=== PATIENT | female | born 1955 | race Caucasian/White ===

== ENCOUNTER → 2017-04-28 | Outpatient (CLI) | payer OTHER ==
[~2017-04-28] MED LIST: CIPR500T87 PO; FLUO10CA13 PO; LORA-446 PO; LORA2TAB99 PO; MIDO2.5T PO; MIRT15TA3 PO; RISP1TAB PO; WARF2TAB PO-COUM; kcl PO
== END | disposition home or self-care (01) ==
LOC: CFH 13:13
PROVIDERS: ATTEND Internal Medicine
DX: J90 Pleural effusion, not elsewhere classified (principal); I26.99 Other pulmonary embolism without acute cor pulmonale; Z86.711 Personal history of pulmonary embolism
CPT/HCPCS: 71275

== ENCOUNTER 2017-05-31 16:01 | Inpatient (IN) | payer OTHER ==
[~2017-05-31] VITALS: Ht 157.5 cm; Wt 62.3 kg
[2017-05-31] MEDS ORDERED: SODIUM CHLORIDE FLUSH 10ML SYR IVF ONE (17:00)
[2017-05-31] MEDS ORDERED: SODIUM CHLORIDE 0.9% 1,000ML IVBOLUS ONE (17:00)
[2017-05-31 17:12] LABS: HEMATOCRIT 49.6 % (34.6-47.8); HEMOGLOBIN 16.4 g/dL (11.7-16.4); WHITE BLOOD COUNT 12.4 x10^3/uL (3.4-10)
[2017-05-31 17:24] LABS: ASPARTATE AMINO TRANSFERASE 85 U/L (15-37); BLOOD UREA NITROGEN 35 mg/dL (7-18)
[2017-05-31] MEDS ORDERED: TRAZODONE 50MG TABLET PO PRN (18:00)
[2017-05-31] MEDS ORDERED: ACETAMINOPHEN 325 MG TABLET PO PRN (18:00)
[2017-05-31] MEDS ORDERED: ONDANSETRON 2MG/ML, 2ML IVPush PRN (18:00)
[2017-05-31] MEDS ORDERED: ENOXAPARIN 40 MG/0.4 ML SQ SCH (18:00)
[2017-05-31] MEDS ORDERED: ENOXAPARIN 40 MG/0.4 ML ONE (18:37)
[2017-05-31] MEDS: SODIUM CHLORIDE 0.9% 1,000 ML IV SCH (19:00)
[2017-05-31] MEDS ORDERED: RISP2TAB3 PO (19:09)
[2017-05-31] MEDS ORDERED: WARF5TAB7 PO (19:09)
[2017-05-31] MEDS ORDERED: LORA-445 PO (19:09)
[2017-05-31 19:51] VITALS: BP 140/86
[2017-06-01 01:43] VITALS: BP 131/78
[2017-06-01 05:28] LABS: HEMATOCRIT 42.7 % (34.6-47.8); HEMOGLOBIN 13.8 g/dL (11.7-16.4); WHITE BLOOD COUNT 7.4 x10^3/uL (3.4-10)
[2017-06-01 05:34] LABS: BLOOD UREA NITROGEN 18 mg/dL (7-18)
[2017-06-01] MEDS: SODIUM CHLORIDE 0.9% 1,000 ML IV SCH ×3 (05:55→23:54)
[2017-06-01 08:18] VITALS: BP 150/83
[2017-06-01 09:27] LABS: DAU SCREEN DISCLAIMER
[2017-06-01 14:26] VITALS: BP 157/95
[2017-06-01] MEDS ORDERED: POTASSIUM CHLORIDE 20 MEQ TAB.ER.PRT PO ONE (16:00)
[2017-06-01] MEDS ORDERED: SODIUM PHOSPHATE 20 MMOL in SODIUM CHLORIDE 0.9% 500 ML IV ONE (16:00)
[2017-06-01] MEDS: WARFARIN 5 MG TABLET PO-COUM SCH (17:32)
[2017-06-01 18:47] VITALS: BP 126/79
[2017-06-01] MEDS ORDERED: RISPERIDONE 2 MG TABLET PO SCH (21:00)
[2017-06-01] MEDS: LORazepam 0.5MG TABLET PO SCH (23:54)
[2017-06-02 02:14] VITALS: BP 117/72
[2017-06-02] MEDS: SODIUM CHLORIDE 0.9% 1,000 ML IV SCH ×3 (04:58→23:31)
[2017-06-02 07:27] VITALS: BP 123/72
[2017-06-02] MEDS: LORazepam 0.5MG TABLET PO SCH (08:26)
[2017-06-02] MEDS ORDERED: LORazepam 2 MG/ML, 1ML IVPush ONE (13:05)
[2017-06-02] MEDS: LORazepam 2 MG/ML, 1ML IVPush SCH ×2 (13:30→16:49)
[2017-06-02 13:45] VITALS: BP 137/80
[2017-06-02 14:32] LABS: BLOOD UREA NITROGEN 6 mg/dL (7-18)
[2017-06-02] MEDS: WARFARIN 5 MG TABLET PO-COUM SCH (16:49)
[2017-06-02 19:02] VITALS: BP 120/84
[2017-06-02] MEDS: RISPERIDONE 1 MG TAB.RAPDIS PO SCH (23:31)
[2017-06-03 01:32] VITALS: BP 102/67
[2017-06-03 06:13] LABS: BLOOD UREA NITROGEN 7 mg/dL (7-18)
[2017-06-03] MEDS: SODIUM CHLORIDE 0.9% 1,000 ML IV SCH ×3 (07:37→21:59)
[2017-06-03] MEDS: LORazepam 2 MG/ML, 1ML IVPush SCH ×3 (07:41→17:08)
[2017-06-03 07:53] VITALS: BP 134/82
[2017-06-03] MEDS ORDERED: POTASSIUM CHLORIDE 20 MEQ TAB.ER.PRT PO ONE (09:00)
[2017-06-03 13:07] VITALS: BP 126/77
[2017-06-03] MEDS: WARFARIN 5 MG TABLET PO-COUM SCH (17:09)
[2017-06-03 19:40] VITALS: BP 131/86
[2017-06-03] MEDS ORDERED: LORazepam 2 MG/ML, 1ML IVPush SCH (21:00)
[2017-06-03] MEDS: RISPERIDONE 1 MG TAB.RAPDIS PO SCH (21:59)
[2017-06-04 00:27] VITALS: BP 119/79
[2017-06-04] MEDS: SODIUM CHLORIDE 0.9% 1,000 ML IV SCH ×3 (05:18→17:32)
[2017-06-04 07:05] VITALS: BP 135/88
[2017-06-04 08:28] LABS: HEMOGLOBIN 14.4 g/dL (11.7-16.4); WHITE BLOOD COUNT 8.1 x10^3/uL (3.4-10)
[2017-06-04] MEDS: LORazepam 2 MG/ML, 1ML IVPush SCH ×3 (08:28→16:59)
[2017-06-04 08:34] LABS: ASPARTATE AMINO TRANSFERASE 16 U/L (15-37); BLOOD UREA NITROGEN 3 mg/dL (7-18)
[2017-06-04] MEDS ORDERED: POTASSIUM CHLORIDE 40 MEQ in SODIUM CHLORIDE 0.9% 500 ML IV ONE (09:00)
[2017-06-04 16:05] VITALS: BP 130/85
[2017-06-04] MEDS: POTASSIUM CHLORIDE 20 MEQ TAB.ER.PRT PO SCH ×2 (17:30→17:33)
[2017-06-04] MEDS: WARFARIN 5 MG TABLET PO-COUM SCH (17:44)
[2017-06-04] MEDS: THIAMINE 100 MG in SODIUM CHLORIDE 0.9% 50 ML IV SCH (19:14)
[2017-06-04 20:00] VITALS: BP 123/78
[2017-06-04] MEDS ORDERED: LORazepam 2 MG/ML, 1ML IVPush SCH (21:00)
[2017-06-04] MEDS: RISPERIDONE 1 MG TAB.RAPDIS PO SCH (21:17)
[2017-06-04 22:25] VITALS: BP 115/75
[2017-06-05 04:59] VITALS: BP 136/85
[2017-06-05] MEDS: LORazepam 2 MG/ML, 1ML IVPush SCH ×3 (08:17→18:16)
[2017-06-05] MEDS: SODIUM CHLORIDE 0.9% 1,000 ML IV SCH ×2 (08:17→16:28)
[2017-06-05] MEDS: POTASSIUM CHLORIDE 20 MEQ TAB.ER.PRT PO SCH ×2 (08:17→18:15)
[2017-06-05 08:30] VITALS: BP 133/85
[2017-06-05 09:01] LABS: BLOOD UREA NITROGEN 3 mg/dL (7-18)
[2017-06-05] MEDS ORDERED: POTASSIUM CHLORIDE 40 MEQ in SODIUM CHLORIDE 0.9% 500 ML IV ONE (09:30)
[2017-06-05] MEDS ORDERED: SODIUM PHOSPHATE 20 MMOL in SODIUM CHLORIDE 0.9% 500 ML IV ONE (11:00)
[2017-06-05] MEDS ORDERED: MAGNESIUM SULFATE PMX 4GM/100M 100 ML IV ONE (11:00)
[2017-06-05 13:51] VITALS: BP 114/73
[2017-06-05] MEDS: THIAMINE 100 MG in SODIUM CHLORIDE 0.9% 50 ML IV SCH (18:15)
[2017-06-05] MEDS: WARFARIN 5 MG TABLET PO-COUM SCH (18:16)
[2017-06-05] MEDS: RISPERIDONE 1 MG TAB.RAPDIS PO SCH (20:11)
[2017-06-05 20:32] VITALS: BP 119/78
[2017-06-05] MEDS ORDERED: LORazepam 2 MG/ML, 1ML IVPush SCH (21:00)
[2017-06-06 01:04] VITALS: BP 116/78
[2017-06-06] MEDS: SODIUM CHLORIDE 0.9% 1,000 ML IV SCH ×2 (05:18→13:52)
[2017-06-06 05:42] LABS: BLOOD UREA NITROGEN 3 mg/dL (7-18)
[2017-06-06] MEDS: LORazepam 2 MG/ML, 1ML IVPush SCH ×3 (08:15→17:28)
[2017-06-06 08:26] VITALS: BP 126/87
[2017-06-06 13:48] VITALS: BP 120/79
[2017-06-06] MEDS: WARFARIN 5 MG TABLET PO-COUM SCH (17:28)
[2017-06-06] MEDS: THIAMINE 100 MG in SODIUM CHLORIDE 0.9% 50 ML IV SCH (17:29)
[2017-06-06 19:17] VITALS: BP 129/85
[2017-06-06] MEDS: RISPERIDONE 1 MG TAB.RAPDIS PO SCH (20:50)
[2017-06-07 01:58] VITALS: BP 116/66
[2017-06-07] MEDS: SODIUM CHLORIDE 0.9% 1,000 ML IV SCH (04:24)
[2017-06-07 07:17] VITALS: BP 148/81
[2017-06-07] MEDS: LORazepam 2 MG/ML, 1ML IVPush SCH ×3 (08:33→18:18)
[2017-06-07] MEDS ORDERED: SODIUM PHOSPHATE 20 MMOL in SODIUM CHLORIDE 0.9% 500 ML IV ONE (10:00)
[2017-06-07] MEDS ORDERED: DOCUSATE 100 MG CAPSULE PO PRN ×2 (13:30→19:00)
[2017-06-07 13:45] VITALS: BP 117/77
[2017-06-07] MEDS ORDERED: ACETAMINOPHEN 325 MG TABLET PO PRN (19:00)
[2017-06-07] MEDS ORDERED: TRAZODONE 50MG TABLET PO PRN (19:00)
[2017-06-07] MEDS ORDERED: ONDANSETRON 2MG/ML, 2ML IVPush PRN (19:00)
[2017-06-07 19:36] VITALS: BP 124/78
[2017-06-08] MEDS: SODIUM CHLORIDE 0.9% 1,000 ML IV SCH ×2 (01:09→08:20)
[2017-06-08] MEDS: THIAMINE 100 MG in SODIUM CHLORIDE 0.9% 50 ML IV SCH (01:09)
[2017-06-08] MEDS: RISPERIDONE 1 MG TAB.RAPDIS PO SCH ×2 (01:09→20:51)
[2017-06-08 01:56] VITALS: BP 118/70
[2017-06-08 04:39] LABS: HEMOGLOBIN 15.1 g/dL (11.7-16.4); WHITE BLOOD COUNT 6.1 x10^3/uL (3.4-10)
[2017-06-08 04:49] LABS: BLOOD UREA NITROGEN 4 mg/dL (7-18)
[2017-06-08 04:55] LABS: ASPARTATE AMINO TRANSFERASE 14 U/L (15-37)
[2017-06-08 08:10] VITALS: BP 151/92
[2017-06-08] MEDS: POTASSIUM CHLORIDE 20 MEQ TAB.ER.PRT PO SCH ×2 (08:33→17:39)
[2017-06-08] MEDS: LORazepam 2 MG/ML, 1ML IVPush SCH ×3 (08:33→17:39)
[2017-06-08] MEDS ORDERED: NS + 20MEQ KCL 1,000 ML IV SCH (11:00)
[2017-06-08] MEDS ORDERED: TPN PER PHARMACY MC PRN (11:30)
[2017-06-08 13:51] VITALS: BP 133/85
[2017-06-08] MEDS ORDERED: FILTER, DISP 1.2 MICRON FOR TPN/PVN IV PRN (14:00)
[2017-06-08] MEDS ORDERED: DEXTROSE 50%, 50ML SYRINGE IVPush PRN (17:00)
[2017-06-08] MEDS ORDERED: [UNRECOGNIZED DRUG - OTHER] IV SCH (17:00)
[2017-06-08] MEDS ORDERED: AMINO ACID 10% IV SCH (17:00)
[2017-06-08] MEDS ORDERED: DEXTROSE 10% 500 ML IV PRN (17:00)
[2017-06-08] MEDS ORDERED: FAT EMULSIONS IV SCH (17:00)
[2017-06-08] MEDS ORDERED: DEXTROSE 70% IV SCH (17:00)
[2017-06-08] MEDS: INSULIN REGULAR LOW DOSE Q6H X 48HRS SQ-INSULIN SCH (20:52)
[2017-06-08] MEDS ORDERED: LORazepam 2 MG/ML, 1ML IVPush SCH (21:00)
[2017-06-08 21:41] VITALS: BP 121/85
[2017-06-09 01:16] VITALS: BP 116/74
[2017-06-09] MEDS: INSULIN REGULAR LOW DOSE Q6H X 48HRS SQ-INSULIN SCH ×4 (03:00→20:34)
[2017-06-09 05:06] LABS: BLOOD UREA NITROGEN 5 mg/dL (7-18)
[2017-06-09 07:31] VITALS: BP 134/83
[2017-06-09] MEDS: LORazepam 2 MG/ML, 1ML IVPush SCH ×3 (08:19→16:59)
[2017-06-09] MEDS: POTASSIUM CHLORIDE 20 MEQ TAB.ER.PRT PO SCH (08:19)
[2017-06-09 14:01] VITALS: BP 124/83
[2017-06-09] MEDS ORDERED: FILTER, DISP 1.2 MICRON FOR TPN/PVN IV PRN (16:00)
[2017-06-09] MEDS ORDERED: [UNRECOGNIZED DRUG - OTHER] IV SCH (17:00)
[2017-06-09] MEDS ORDERED: FAT EMULSIONS IV SCH ×3 (17:00)
[2017-06-09] MEDS ORDERED: DEXTROSE 70% IV SCH ×3 (17:00)
[2017-06-09] MEDS ORDERED: AMINO ACID 10% IV SCH ×3 (17:00)
[2017-06-09] MEDS ORDERED: [UNRECOGNIZED DRUG - OTHER] IV SCH ×2 (17:00)
[2017-06-09] MEDS: RISPERIDONE 1 MG TAB.RAPDIS PO SCH (17:06)
[2017-06-09] MEDS ORDERED: DEXTROSE 10% 500 ML IV PRN (17:46)
[2017-06-09] MEDS ORDERED: WARFARIN 5 MG TABLET PO-COUM ONE (18:00)
[2017-06-09 19:26] VITALS: BP 125/87
[2017-06-09] MEDS ORDERED: LORazepam 2 MG/ML, 1ML IVPush SCH (21:00)
[2017-06-10 01:47] VITALS: BP 119/82
[2017-06-10] MEDS: INSULIN REGULAR LOW DOSE Q6H X 48HRS SQ-INSULIN SCH ×3 (03:00→15:00)
[2017-06-10 06:21] LABS: BLOOD UREA NITROGEN 7 mg/dL (7-18)
[2017-06-10 07:41] VITALS: BP 124/79
[2017-06-10] MEDS: LORazepam 2 MG/ML, 1ML IVPush SCH ×3 (09:13→17:00)
[2017-06-10] MEDS: ENOXAPARIN 60 MG/0.6 ML SQ SCH ×2 (10:02→22:45)
[2017-06-10] MEDS: LORazepam INTENSOL 2 MG/ML PO SCH ×2 (12:26→17:32)
[2017-06-10 14:00] VITALS: BP 95/63
[2017-06-10] MEDS ORDERED: DEXTROSE 70% IV SCH (17:00)
[2017-06-10] MEDS ORDERED: [UNRECOGNIZED DRUG - OTHER] IV SCH (17:00)
[2017-06-10] MEDS ORDERED: FAT EMULSIONS IV SCH (17:00)
[2017-06-10] MEDS ORDERED: FILTER, DISP 1.2 MICRON FOR TPN/PVN IV PRN (17:00)
[2017-06-10] MEDS ORDERED: AMINO ACID 10% IV SCH (17:00)
[2017-06-10] MEDS: RISPERIDONE 1 MG TAB.RAPDIS PO SCH (17:31)
[2017-06-10] MEDS ORDERED: WARFARIN 5 MG TABLET PO-COUM SCH (18:00)
[2017-06-10 20:37] VITALS: BP 103/71
[2017-06-10] MEDS: INSULIN REGULAR LOW DOSE QDAY SQ-INSULIN SCH (21:15)
[2017-06-11 00:56] VITALS: BP 102/68
[2017-06-11 05:41] LABS: BLOOD UREA NITROGEN 12 mg/dL (7-18)
[2017-06-11] MEDS: LORazepam 2 MG/ML, 1ML IVPush SCH ×3 (07:15→16:05)
[2017-06-11] MEDS: LORazepam INTENSOL 2 MG/ML PO SCH ×3 (07:33→17:23)
[2017-06-11 07:58] VITALS: BP 110/70
[2017-06-11] MEDS: ENOXAPARIN 60 MG/0.6 ML SQ SCH ×2 (11:35→21:52)
[2017-06-11 13:24] VITALS: BP 104/57
[2017-06-11] MEDS ORDERED: FAT EMULSIONS IV SCH (17:00)
[2017-06-11] MEDS ORDERED: DEXTROSE 70% IV SCH (17:00)
[2017-06-11] MEDS ORDERED: AMINO ACID 10% IV SCH (17:00)
[2017-06-11] MEDS ORDERED: [UNRECOGNIZED DRUG - OTHER] IV SCH (17:00)
[2017-06-11] MEDS: RISPERIDONE 1 MG TAB.RAPDIS PO SCH (17:22)
[2017-06-11] MEDS ORDERED: WARFARIN 7.5 MG TABLET PO-COUM SCH (18:00)
[2017-06-11 20:25] VITALS: BP 121/81
[2017-06-11] MEDS: INSULIN REGULAR LOW DOSE QDAY SQ-INSULIN SCH (21:00)
[2017-06-11] MEDS: TRAZODONE 50MG TABLET PO SCH ×2 (21:00→21:46)
[2017-06-12 02:53] VITALS: BP 122/64
[2017-06-12 07:28] VITALS: BP 126/84
[2017-06-12] MEDS: LORazepam 2 MG/ML, 1ML IVPush SCH ×3 (08:00→17:00)
[2017-06-12] MEDS: LORazepam INTENSOL 2 MG/ML PO SCH ×3 (08:05→17:56)
[2017-06-12] MEDS: ENOXAPARIN 60 MG/0.6 ML SQ SCH ×2 (10:40→23:38)
[2017-06-12 13:37] VITALS: BP 113/77
[2017-06-12] MEDS ORDERED: TRAZODONE 50MG TABLET PO PRN (16:00)
[2017-06-12] MEDS: RISPERIDONE 1 MG TAB.RAPDIS PO SCH (16:40)
[2017-06-12 16:50] VITALS: BP 121/79
[2017-06-12] MEDS ORDERED: [UNRECOGNIZED DRUG - OTHER] IV SCH (17:00)
[2017-06-12] MEDS ORDERED: FILTER, DISP 1.2 MICRON FOR TPN/PVN IV PRN (17:00)
[2017-06-12] MEDS ORDERED: DEXTROSE 70% IV SCH (17:00)
[2017-06-12] MEDS ORDERED: AMINO ACID 10% IV SCH (17:00)
[2017-06-12] MEDS ORDERED: FAT EMULSIONS IV SCH (17:00)
[2017-06-12] MEDS ORDERED: WARFARIN 10 MG TABLET PO-COUM SCH (18:00)
[2017-06-12 18:43] VITALS: BP 117/84
[2017-06-12 19:08] VITALS: BP 130/90
[2017-06-12] MEDS: INSULIN REGULAR LOW DOSE QDAY SQ-INSULIN SCH (21:00)
[2017-06-13 03:45] VITALS: BP 115/74
[2017-06-13 05:26] LABS: HEMATOCRIT 44.3 % (34.6-47.8); HEMOGLOBIN 14.4 g/dL (11.7-16.4); WHITE BLOOD COUNT 6.4 x10^3/uL (3.4-10)
[2017-06-13 05:47] LABS: BLOOD UREA NITROGEN 10 mg/dL (7-18)
[2017-06-13] MEDS: LORazepam 2 MG/ML, 1ML IVPush SCH ×3 (08:00→17:00)
[2017-06-13 08:18] VITALS: BP 127/79
[2017-06-13] MEDS: LORazepam INTENSOL 2 MG/ML PO SCH ×3 (09:04→17:39)
[2017-06-13] MEDS: ENOXAPARIN 60 MG/0.6 ML SQ SCH ×2 (11:01→22:05)
[2017-06-13 13:47] VITALS: BP 111/74
[2017-06-13] MEDS ORDERED: FAT EMULSIONS IV SCH (17:00)
[2017-06-13] MEDS ORDERED: AMINO ACID 10% IV SCH (17:00)
[2017-06-13] MEDS ORDERED: [UNRECOGNIZED DRUG - OTHER] IV SCH (17:00)
[2017-06-13] MEDS ORDERED: DEXTROSE 70% IV SCH (17:00)
[2017-06-13] MEDS: RISPERIDONE 1 MG TAB.RAPDIS PO SCH (17:39)
[2017-06-13] MEDS ORDERED: WARFARIN 10 MG TABLET PO-COUM SCH (18:00)
[2017-06-13 19:01] VITALS: BP 106/58
[2017-06-13] MEDS: INSULIN REGULAR LOW DOSE QDAY SQ-INSULIN SCH (21:00)
[2017-06-13] MEDS ORDERED: TPN PER PHARMACY MC PRN (22:00)
[2017-06-13] MEDS ORDERED: ACETAMINOPHEN 325 MG TABLET PO PRN (22:00)
[2017-06-13] MEDS ORDERED: DOCUSATE 100 MG CAPSULE PO PRN (22:00)
[2017-06-13] MEDS ORDERED: DEXTROSE 50%, 50ML SYRINGE IVPush PRN (22:00)
[2017-06-13] MEDS ORDERED: ONDANSETRON 2MG/ML, 2ML IVPush PRN (22:00)
[2017-06-14 04:09] VITALS: BP 110/74
[2017-06-14 06:30] LABS: BLOOD UREA NITROGEN 10 mg/dL (7-18)
[2017-06-14] MEDS: LORazepam 2 MG/ML, 1ML IVPush SCH ×3 (08:00→16:53)
[2017-06-14 09:13] VITALS: BP 136/86
[2017-06-14] MEDS: LORazepam INTENSOL 2 MG/ML PO SCH ×3 (09:13→16:52)
[2017-06-14] MEDS: ENOXAPARIN 60 MG/0.6 ML SQ SCH (11:39)
[2017-06-14 14:00] VITALS: BP 104/69
[2017-06-14] MEDS: RISPERIDONE 1 MG TAB.RAPDIS PO SCH (16:52)
[2017-06-14] MEDS ORDERED: AMINO ACID 10% IV SCH (17:00)
[2017-06-14] MEDS ORDERED: DEXTROSE 70% IV SCH (17:00)
[2017-06-14] MEDS ORDERED: FAT EMULSIONS IV SCH (17:00)
[2017-06-14] MEDS ORDERED: [UNRECOGNIZED DRUG - OTHER] IV SCH (17:00)
[2017-06-14] MEDS ORDERED: FILTER, DISP 1.2 MICRON FOR TPN/PVN IV PRN (17:00)
[2017-06-14] MEDS ORDERED: WARFARIN 7.5 MG TABLET PO-COUM SCH (18:00)
[2017-06-14 20:06] VITALS: BP 112/74
[2017-06-14] MEDS: INSULIN REGULAR LOW DOSE QDAY SQ-INSULIN SCH (21:00)
[2017-06-15] MEDS: ENOXAPARIN 60 MG/0.6 ML SQ SCH ×2 (00:08→12:13)
[2017-06-15 01:20] VITALS: BP 120/81
[2017-06-15 05:55] LABS: ASPARTATE AMINO TRANSFERASE 30 U/L (15-37); BLOOD UREA NITROGEN 11 mg/dL (7-18)
[2017-06-15 07:19] VITALS: BP 144/86
[2017-06-15] MEDS: LORazepam INTENSOL 2 MG/ML PO SCH ×3 (07:57→16:51)
[2017-06-15] MEDS: LORazepam 2 MG/ML, 1ML IVPush SCH ×3 (07:58→16:52)
[2017-06-15 14:04] VITALS: BP 116/72
[2017-06-15] MEDS: RISPERIDONE 1 MG TAB.RAPDIS PO SCH (16:51)
[2017-06-15] MEDS ORDERED: DEXTROSE 70% IV SCH (17:00)
[2017-06-15] MEDS ORDERED: [UNRECOGNIZED DRUG - OTHER] IV SCH (17:00)
[2017-06-15] MEDS ORDERED: AMINO ACID 10% IV SCH (17:00)
[2017-06-15] MEDS ORDERED: FAT EMULSIONS IV SCH (17:00)
[2017-06-15] MEDS ORDERED: FILTER, DISP 1.2 MICRON FOR TPN/PVN IV PRN (17:00)
[2017-06-15] MEDS ORDERED: WARFARIN 10 MG TABLET PO-COUM ONE (18:00)
[2017-06-15 19:32] VITALS: BP 110/73
[2017-06-15] MEDS: INSULIN REGULAR LOW DOSE QDAY SQ-INSULIN SCH (19:47)
[2017-06-16 00:38] VITALS: BP 105/62
[2017-06-16] MEDS: ENOXAPARIN 60 MG/0.6 ML SQ SCH ×3 (00:49→22:03)
[2017-06-16 06:06] LABS: BLOOD UREA NITROGEN 10 mg/dL (7-18)
[2017-06-16 07:19] VITALS: BP 143/93
[2017-06-16] MEDS: LORazepam 2 MG/ML, 1ML IVPush SCH ×3 (08:00→17:00)
[2017-06-16] MEDS: LORazepam INTENSOL 2 MG/ML PO SCH ×3 (09:18→17:32)
[2017-06-16] MEDS ORDERED: FILTER, DISP 1.2 MICRON FOR TPN/PVN IV PRN (09:30)
[2017-06-16 14:15] VITALS: BP 112/75
[2017-06-16] MEDS ORDERED: DEXTROSE 70% IV SCH (17:00)
[2017-06-16] MEDS ORDERED: FAT EMULSIONS IV SCH (17:00)
[2017-06-16] MEDS ORDERED: [UNRECOGNIZED DRUG - OTHER] IV SCH (17:00)
[2017-06-16] MEDS ORDERED: AMINO ACID 10% IV SCH (17:00)
[2017-06-16] MEDS: RISPERIDONE 1 MG TAB.RAPDIS PO SCH (17:33)
[2017-06-16] MEDS ORDERED: WARFARIN 7.5 MG TABLET PO-COUM ONE (18:00)
[2017-06-16 19:20] VITALS: BP 105/73
[2017-06-16] MEDS: INSULIN REGULAR LOW DOSE QDAY SQ-INSULIN SCH (21:00)
[2017-06-17 00:59] VITALS: BP 113/80
[2017-06-17 06:10] LABS: BLOOD UREA NITROGEN 10 mg/dL (7-18)
[2017-06-17] MEDS: LORazepam INTENSOL 2 MG/ML PO SCH ×3 (07:21→17:03)
[2017-06-17] MEDS: LORazepam 2 MG/ML, 1ML IVPush SCH ×3 (07:21→15:04)
[2017-06-17 08:15] VITALS: BP 134/82
[2017-06-17] MEDS: ENOXAPARIN 60 MG/0.6 ML SQ SCH ×2 (11:10→21:20)
[2017-06-17 13:05] VITALS: BP 117/78
[2017-06-17] MEDS ORDERED: [UNRECOGNIZED DRUG - OTHER] IV SCH (17:00)
[2017-06-17] MEDS ORDERED: FAT EMULSIONS IV SCH (17:00)
[2017-06-17] MEDS ORDERED: DEXTROSE 70% IV SCH (17:00)
[2017-06-17] MEDS ORDERED: AMINO ACID 10% IV SCH (17:00)
[2017-06-17] MEDS ORDERED: FILTER, DISP 1.2 MICRON FOR TPN/PVN IV PRN (17:00)
[2017-06-17] MEDS: RISPERIDONE 1 MG TAB.RAPDIS PO SCH (17:01)
[2017-06-17] MEDS ORDERED: WARFARIN 7.5 MG TABLET PO-COUM SCH (18:00)
[2017-06-17 20:20] VITALS: BP 116/76
[2017-06-17] MEDS: INSULIN REGULAR LOW DOSE QDAY SQ-INSULIN SCH (21:00)
[2017-06-18 01:08] VITALS: BP 125/82
[2017-06-18 05:58] LABS: BLOOD UREA NITROGEN 12 mg/dL (7-18)
[2017-06-18] MEDS: LORazepam 2 MG/ML, 1ML IVPush SCH ×3 (07:41→16:19)
[2017-06-18] MEDS: LORazepam INTENSOL 2 MG/ML PO SCH ×3 (07:45→16:55)
[2017-06-18 07:50] VITALS: BP 125/80
[2017-06-18] MEDS ORDERED: FILTER, DISP 1.2 MICRON FOR TPN/PVN IV PRN (09:30)
[2017-06-18] MEDS: ENOXAPARIN 60 MG/0.6 ML SQ SCH ×2 (11:11→22:30)
[2017-06-18 13:13] VITALS: BP 117/78
[2017-06-18] MEDS: RISPERIDONE 1 MG TAB.RAPDIS PO SCH (16:54)
[2017-06-18] MEDS ORDERED: [UNRECOGNIZED DRUG - OTHER] IV SCH (17:00)
[2017-06-18] MEDS ORDERED: FAT EMULSIONS IV SCH ×2 (17:00)
[2017-06-18] MEDS ORDERED: [UNRECOGNIZED DRUG - OTHER] IV SCH (17:00)
[2017-06-18] MEDS ORDERED: AMINO ACID 10% IV SCH ×2 (17:00)
[2017-06-18] MEDS ORDERED: DEXTROSE 70% IV SCH ×2 (17:00)
[2017-06-18] MEDS ORDERED: WARFARIN 7.5 MG TABLET PO-COUM ONE (18:00)
[2017-06-18 18:37] VITALS: BP 108/73
[2017-06-18] MEDS: INSULIN REGULAR LOW DOSE QDAY SQ-INSULIN SCH (20:23)
[2017-06-19 02:01] VITALS: BP 123/76
[2017-06-19 07:21] VITALS: BP 127/87
[2017-06-19] MEDS: LORazepam INTENSOL 2 MG/ML PO SCH ×3 (08:12→16:39)
[2017-06-19] MEDS: LORazepam 2 MG/ML, 1ML IVPush SCH ×3 (08:12→16:40)
[2017-06-19] MEDS: ENOXAPARIN 60 MG/0.6 ML SQ SCH (10:30)
[2017-06-19 12:35] VITALS: BP 125/86
[2017-06-19] MEDS: RISPERIDONE 1 MG TAB.RAPDIS PO SCH (16:40)
[2017-06-19] MEDS ORDERED: DEXTROSE 70% IV SCH (17:00)
[2017-06-19] MEDS ORDERED: FAT EMULSIONS IV SCH (17:00)
[2017-06-19] MEDS ORDERED: [UNRECOGNIZED DRUG - OTHER] IV SCH (17:00)
[2017-06-19] MEDS ORDERED: AMINO ACID 10% IV SCH (17:00)
[2017-06-19] MEDS ORDERED: FILTER, DISP 1.2 MICRON FOR TPN/PVN IV PRN (17:00)
[2017-06-19] MEDS ORDERED: WARFARIN 7.5 MG TABLET PO-COUM ONE (18:00)
[2017-06-19 20:31] VITALS: BP 120/79
[2017-06-19] MEDS: INSULIN REGULAR LOW DOSE QDAY SQ-INSULIN SCH (21:00)
[2017-06-20 00:38] VITALS: BP 106/73
[2017-06-20 05:23] LABS: HEMATOCRIT 42.7 % (34.6-47.8); HEMOGLOBIN 13.8 g/dL (11.7-16.4); WHITE BLOOD COUNT 7.1 x10^3/uL (3.4-10)
[2017-06-20 05:54] LABS: BLOOD UREA NITROGEN 11 mg/dL (7-18)
[2017-06-20] MEDS: LORazepam INTENSOL 2 MG/ML PO SCH ×3 (08:34→16:00)
[2017-06-20] MEDS: LORazepam 2 MG/ML, 1ML IVPush SCH ×3 (08:34→16:00)
[2017-06-20] MEDS: INSULIN REGULAR LOW DOSE QDAY SQ-INSULIN SCH (10:29)
[2017-06-20] MEDS ORDERED: [UNRECOGNIZED DRUG - OTHER] IV SCH (10:30)
[2017-06-20] MEDS ORDERED: FAT EMULSIONS IV SCH ×2 (10:30→17:00)
[2017-06-20] MEDS ORDERED: AMINO ACID 10% IV SCH ×2 (10:30→17:00)
[2017-06-20] MEDS ORDERED: DEXTROSE 70% IV SCH ×2 (10:30→17:00)
[2017-06-20 14:30] VITALS: BP_SYST 130; BP_SYST 145; BP_DIAS 85; BP_DIAS 92
[2017-06-20] MEDS: RISPERIDONE 1 MG TAB.RAPDIS PO SCH (15:59)
[2017-06-20] MEDS ORDERED: FILTER, DISP 1.2 MICRON FOR TPN/PVN IV PRN (17:00)
[2017-06-20] MEDS ORDERED: [UNRECOGNIZED DRUG - OTHER] IV SCH (17:00)
[2017-06-20] MEDS ORDERED: WARFARIN 10 MG TABLET PO-COUM SCH (18:00)
[2017-06-20 19:52] VITALS: BP 108/74
[2017-06-21 01:29] VITALS: BP 124/84
[2017-06-21] MEDS: LORazepam 2 MG/ML, 1ML IVPush SCH ×3 (08:00→16:43)
[2017-06-21] MEDS: LORazepam INTENSOL 2 MG/ML PO SCH ×3 (08:00→16:54)
[2017-06-21] MEDS ORDERED: LORazepam 1MG TABLET ONE ×2 (08:15→12:06)
[2017-06-21 08:38] VITALS: BP 137/91
[2017-06-21] MEDS: INSULIN REGULAR LOW DOSE QDAY SQ-INSULIN SCH ×2 (10:28→14:30)
[2017-06-21] MEDS ORDERED: DOCUSATE 100 MG CAPSULE PO PRN (14:30)
[2017-06-21] MEDS ORDERED: ONDANSETRON 2MG/ML, 2ML IVPush PRN (14:30)
[2017-06-21] MEDS ORDERED: DEXTROSE 50%, 50ML SYRINGE IVPush PRN (14:30)
[2017-06-21] MEDS ORDERED: ACETAMINOPHEN 325 MG TABLET PO PRN (14:30)
[2017-06-21 15:59] VITALS: BP 130/74
[2017-06-21] MEDS: RISPERIDONE 1 MG TAB.RAPDIS PO SCH (16:54)
[2017-06-21] MEDS ORDERED: FAT EMULSIONS IV SCH (17:00)
[2017-06-21] MEDS ORDERED: AMINO ACID 10% IV SCH (17:00)
[2017-06-21] MEDS ORDERED: [UNRECOGNIZED DRUG - OTHER] IV SCH (17:00)
[2017-06-21] MEDS ORDERED: DEXTROSE 70% IV SCH (17:00)
[2017-06-21] MEDS ORDERED: WARFARIN 10 MG TABLET PO-COUM SCH (18:00)
[2017-06-21 19:16] VITALS: BP 96/62
[2017-06-22 01:32] VITALS: BP 119/76
[2017-06-22 06:00] LABS: BLOOD UREA NITROGEN 16 mg/dL (7-18)
[2017-06-22 06:12] LABS: ASPARTATE AMINO TRANSFERASE 25 U/L (15-37)
[2017-06-22] MEDS: LORazepam 2 MG/ML, 1ML IVPush SCH ×3 (07:11→17:00)
[2017-06-22] MEDS: LORazepam INTENSOL 2 MG/ML PO SCH ×3 (07:14→17:18)
[2017-06-22 07:19] VITALS: BP 140/98
[2017-06-22 13:31] VITALS: BP 114/74
[2017-06-22] MEDS: INSULIN REGULAR LOW DOSE QDAY SQ-INSULIN SCH (14:30)
[2017-06-22] MEDS: FILTER, DISP 1.2 MICRON FOR TPN/PVN IV PRN (16:53)
[2017-06-22] MEDS ORDERED: [UNRECOGNIZED DRUG - OTHER] IV SCH (17:00)
[2017-06-22] MEDS ORDERED: AMINO ACID 10% IV SCH (17:00)
[2017-06-22] MEDS ORDERED: DEXTROSE 70% IV SCH (17:00)
[2017-06-22] MEDS ORDERED: FAT EMULSIONS IV SCH (17:00)
[2017-06-22] MEDS: RISPERIDONE 1 MG TAB.RAPDIS PO SCH (17:18)
[2017-06-22] MEDS ORDERED: WARFARIN 10 MG TABLET PO-COUM SCH (18:00)
[2017-06-22 19:48] VITALS: BP 112/72
[2017-06-23 01:22] VITALS: BP 108/64
[2017-06-23 05:27] LABS: HEMATOCRIT 45.2 % (34.6-47.8); HEMOGLOBIN 14.7 g/dL (11.7-16.4); WHITE BLOOD COUNT 12.3 x10^3/uL (3.4-10)
[2017-06-23 05:29] LABS: ASPARTATE AMINO TRANSFERASE 19 U/L (15-37); BLOOD UREA NITROGEN 15 mg/dL (7-18)
[2017-06-23 07:24] VITALS: BP 121/81
[2017-06-23] MEDS: LORazepam 2 MG/ML, 1ML IVPush SCH ×3 (08:00→17:00)
[2017-06-23] MEDS: LORazepam INTENSOL 2 MG/ML PO SCH ×3 (08:06→17:11)
[2017-06-23] MEDS: CHOLECALCIFEROL 1,000 UNIT TABLET PO SCH (12:11)
[2017-06-23] MEDS: INSULIN REGULAR LOW DOSE QDAY SQ-INSULIN SCH (14:11)
[2017-06-23 14:20] VITALS: BP 91/67
[2017-06-23] MEDS ORDERED: AMINO ACID 10% IV SCH ×2 (17:00)
[2017-06-23] MEDS ORDERED: DEXTROSE 70% IV SCH ×2 (17:00)
[2017-06-23] MEDS ORDERED: FAT EMULSIONS IV SCH ×2 (17:00)
[2017-06-23] MEDS ORDERED: [UNRECOGNIZED DRUG - OTHER] IV SCH ×2 (17:00)
[2017-06-23] MEDS: FILTER, DISP 1.2 MICRON FOR TPN/PVN IV PRN (17:11)
[2017-06-23] MEDS: RISPERIDONE 1 MG TAB.RAPDIS PO SCH (17:14)
[2017-06-23] MEDS ORDERED: WARFARIN 7.5 MG TABLET PO-COUM ONE (18:00)
[2017-06-23 19:34] VITALS: BP 97/74
[2017-06-24 01:28] VITALS: BP 108/79
[2017-06-24 05:48] LABS: BLOOD UREA NITROGEN 20 mg/dL (7-18)
[2017-06-24] MEDS: CHOLECALCIFEROL 1,000 UNIT TABLET PO SCH (07:57)
[2017-06-24] MEDS: LORazepam INTENSOL 2 MG/ML PO SCH ×3 (07:57→16:40)
[2017-06-24] MEDS: LORazepam 2 MG/ML, 1ML IVPush SCH ×3 (07:58→16:40)
[2017-06-24 08:03] VITALS: BP 147/86
[2017-06-24 13:29] VITALS: BP 106/71
[2017-06-24] MEDS: INSULIN REGULAR LOW DOSE QDAY SQ-INSULIN SCH (14:22)
[2017-06-24] MEDS: RISPERIDONE 1 MG TAB.RAPDIS PO SCH (16:40)
[2017-06-24] MEDS ORDERED: FAT EMULSIONS IV SCH (17:00)
[2017-06-24] MEDS ORDERED: [UNRECOGNIZED DRUG - OTHER] IV SCH (17:00)
[2017-06-24] MEDS ORDERED: AMINO ACID 10% IV SCH (17:00)
[2017-06-24] MEDS ORDERED: DEXTROSE 70% IV SCH (17:00)
[2017-06-24] MEDS: FILTER, DISP 1.2 MICRON FOR TPN/PVN IV PRN (17:14)
[2017-06-24] MEDS ORDERED: WARFARIN 5 MG TABLET PO-COUM ONE (18:00)
[2017-06-24 19:22] VITALS: BP 105/70
[2017-06-25 01:20] VITALS: BP 151/89
[2017-06-25 05:36] LABS: BLOOD UREA NITROGEN 19 mg/dL (7-18)
[2017-06-25 07:32] VITALS: BP 124/78
[2017-06-25] MEDS: LORazepam INTENSOL 2 MG/ML PO SCH ×3 (08:00→17:00)
[2017-06-25] MEDS: LORazepam 2 MG/ML, 1ML IVPush SCH ×3 (08:00→17:00)
[2017-06-25] MEDS: CHOLECALCIFEROL 1,000 UNIT TABLET PO SCH (08:28)
[2017-06-25] MEDS ORDERED: LORazepam 1MG TABLET ONE ×2 (13:01→17:16)
[2017-06-25] MEDS: INSULIN REGULAR LOW DOSE QDAY SQ-INSULIN SCH (14:30)
[2017-06-25 15:36] VITALS: BP 117/79
[2017-06-25] MEDS: RISPERIDONE 1 MG TAB.RAPDIS PO SCH (16:30)
[2017-06-25] MEDS ORDERED: AMINO ACID 10% IV SCH (17:00)
[2017-06-25] MEDS ORDERED: [UNRECOGNIZED DRUG - OTHER] IV SCH (17:00)
[2017-06-25] MEDS ORDERED: FAT EMULSIONS IV SCH (17:00)
[2017-06-25] MEDS ORDERED: DEXTROSE 70% IV SCH (17:00)
[2017-06-25] MEDS ORDERED: WARFARIN 7.5 MG TABLET PO-COUM SCH (18:00)
[2017-06-25 18:28] VITALS: BP 103/64
[2017-06-26 00:37] VITALS: BP 111/71
[2017-06-26 07:17] VITALS: BP 131/83
[2017-06-26] MEDS ORDERED: LORazepam 1MG TABLET PO ONE (08:00)
[2017-06-26] MEDS: LORazepam 2 MG/ML, 1ML IVPush SCH ×3 (08:00→16:58)
[2017-06-26] MEDS ORDERED: LORazepam 0.5MG TABLET ONE (09:35)
[2017-06-26] MEDS: CHOLECALCIFEROL 1,000 UNIT TABLET PO SCH (09:45)
[2017-06-26] MEDS: LORazepam 1MG TABLET PO SCH ×2 (12:00→17:00)
[2017-06-26] MEDS: INSULIN REGULAR LOW DOSE QDAY SQ-INSULIN SCH (14:30)
[2017-06-26 14:38] VITALS: BP 111/82
[2017-06-26] MEDS ORDERED: FAT EMULSIONS IV SCH (17:00)
[2017-06-26] MEDS ORDERED: AMINO ACID 10% IV SCH (17:00)
[2017-06-26] MEDS ORDERED: DEXTROSE 70% IV SCH (17:00)
[2017-06-26] MEDS ORDERED: [UNRECOGNIZED DRUG - OTHER] IV SCH (17:00)
[2017-06-26] MEDS ORDERED: WARFARIN 10 MG TABLET PO-COUM SCH (18:00)
[2017-06-26 19:02] VITALS: BP 119/81
[2017-06-26] MEDS: RISPERIDONE 2 MG TABLET PO SCH (21:20)
[2017-06-27 01:02] VITALS: BP 142/87
[2017-06-27 05:23] LABS: BLOOD UREA NITROGEN 18 mg/dL (7-18)
[2017-06-27 07:08] VITALS: BP 129/87
[2017-06-27] MEDS: CHOLECALCIFEROL 1,000 UNIT TABLET PO SCH (09:15)
[2017-06-27] MEDS: LORazepam 1MG TABLET PO SCH ×3 (09:16→17:00)
[2017-06-27] MEDS: LORazepam 2 MG/ML, 1ML IVPush SCH ×3 (09:17→18:09)
[2017-06-27 13:43] VITALS: BP 119/78
[2017-06-27] MEDS: INSULIN REGULAR LOW DOSE QDAY SQ-INSULIN SCH (14:30)
[2017-06-27] MEDS ORDERED: [UNRECOGNIZED DRUG - OTHER] IV SCH (17:00)
[2017-06-27] MEDS ORDERED: FAT EMULSIONS IV SCH (17:00)
[2017-06-27] MEDS ORDERED: DEXTROSE 70% IV SCH (17:00)
[2017-06-27] MEDS ORDERED: AMINO ACID 10% IV SCH (17:00)
[2017-06-27] MEDS ORDERED: WARFARIN 7.5 MG TABLET PO-COUM SCH (18:00)
[2017-06-27 19:01] VITALS: BP 130/86
[2017-06-27] MEDS: RISPERIDONE 2 MG TABLET PO SCH (20:18)
[2017-06-28 02:03] VITALS: BP 127/83
[2017-06-28 05:51] LABS: BLOOD UREA NITROGEN 20 mg/dL (7-18)
[2017-06-28] MEDS: LORazepam 2 MG/ML, 1ML IVPush SCH ×3 (07:11→16:57)
[2017-06-28] MEDS: LORazepam 1MG TABLET PO SCH ×3 (07:32→16:57)
[2017-06-28 07:41] VITALS: BP 134/90
[2017-06-28] MEDS: CHOLECALCIFEROL 1,000 UNIT TABLET PO SCH (08:39)
[2017-06-28 10:50] LABS: HEMATOCRIT 41.1 % (34.6-47.8); HEMOGLOBIN 13.3 g/dL (11.7-16.4); WHITE BLOOD COUNT 11.4 x10^3/uL (3.4-10)
[2017-06-28 12:54] VITALS: BP 108/74
[2017-06-28] MEDS: MEGESTROL ORAL.SUSP 40 MG/ML PO SCH (13:00)
[2017-06-28] MEDS: CEFTRIAXONE PMX 1GM/50ML 50 ML IV SCH (14:20)
[2017-06-28] MEDS: INSULIN REGULAR LOW DOSE QDAY SQ-INSULIN SCH (14:30)
[2017-06-28] MEDS: FILTER, DISP 1.2 MICRON FOR TPN/PVN IV PRN (16:56)
[2017-06-28] MEDS ORDERED: WARFARIN 7.5 MG TABLET PO-COUM SCH (18:00)
[2017-06-28 18:43] VITALS: BP 129/83
[2017-06-28] MEDS ORDERED: ACETAMINOPHEN 325 MG TABLET PO PRN (19:30)
[2017-06-28] MEDS ORDERED: DEXTROSE 50%, 50ML SYRINGE IVPush PRN (19:30)
[2017-06-28] MEDS ORDERED: DOCUSATE 100 MG CAPSULE PO PRN (19:30)
[2017-06-28] MEDS ORDERED: ONDANSETRON 2MG/ML, 2ML IVPush PRN (19:30)
[2017-06-28] MEDS ORDERED: TPN PER PHARMACY MC PRN (19:30)
[2017-06-28] MEDS: RISPERIDONE 2 MG TABLET PO SCH (19:59)
[2017-06-28] MEDS ORDERED: AMINO ACID 10% IV SCH (20:00)
[2017-06-28] MEDS ORDERED: DEXTROSE 70% IV SCH (20:00)
[2017-06-28] MEDS ORDERED: [UNRECOGNIZED DRUG - OTHER] IV SCH (20:00)
[2017-06-28] MEDS ORDERED: FAT EMULSIONS IV SCH (20:00)
[2017-06-29 00:29] VITALS: BP 131/78
[2017-06-29 04:10] LABS: ASPARTATE AMINO TRANSFERASE 16 U/L (15-37); BLOOD UREA NITROGEN 17 mg/dL (7-18)
[2017-06-29] MEDS: LORazepam 2 MG/ML, 1ML IVPush SCH ×3 (08:00→17:00)
[2017-06-29 08:10] VITALS: BP 120/80
[2017-06-29] MEDS: LORazepam 1MG TABLET PO SCH ×3 (08:25→17:37)
[2017-06-29] MEDS: MEGESTROL ORAL.SUSP 40 MG/ML PO SCH ×2 (08:25→08:36)
[2017-06-29] MEDS: CHOLECALCIFEROL 1,000 UNIT TABLET PO SCH (08:26)
[2017-06-29] MEDS: INSULIN REGULAR LOW DOSE QDAY SQ-INSULIN SCH (14:03)
[2017-06-29 14:07] VITALS: BP 100/68
[2017-06-29] MEDS: CEFTRIAXONE PMX 1GM/50ML 50 ML IV SCH (14:27)
[2017-06-29] MEDS ORDERED: [UNRECOGNIZED DRUG - OTHER] IV SCH (17:00)
[2017-06-29] MEDS ORDERED: FAT EMULSIONS IV SCH (17:00)
[2017-06-29] MEDS ORDERED: AMINO ACID 10% IV SCH (17:00)
[2017-06-29] MEDS ORDERED: DEXTROSE 70% IV SCH (17:00)
[2017-06-29] MEDS ORDERED: OMNIPAQUE 350 MG/ML, 100ML BOTTLE ONE (17:36)
[2017-06-29] MEDS: FILTER, DISP 1.2 MICRON FOR TPN/PVN IV PRN (17:37)
[2017-06-29] MEDS ORDERED: WARFARIN 7.5 MG TABLET PO-COUM ONE (18:00)
[2017-06-29 19:36] VITALS: BP 104/68
[2017-06-29] MEDS: RISPERIDONE 2 MG TABLET PO SCH (21:25)
[2017-06-30 01:36] VITALS: BP 162/84
[2017-06-30 06:55] VITALS: BP 142/84
[2017-06-30] MEDS: LORazepam 2 MG/ML, 1ML IVPush SCH ×3 (08:00→17:00)
[2017-06-30] MEDS: MEGESTROL ORAL.SUSP 40 MG/ML PO SCH (08:22)
[2017-06-30] MEDS: CHOLECALCIFEROL 1,000 UNIT TABLET PO SCH (08:32)
[2017-06-30] MEDS: LORazepam 1MG TABLET PO SCH ×3 (08:32→17:16)
[2017-06-30 12:30] VITALS: BP 118/32
[2017-06-30] MEDS: CEFTRIAXONE PMX 1GM/50ML 50 ML IV SCH (14:19)
[2017-06-30] MEDS: INSULIN REGULAR LOW DOSE QDAY SQ-INSULIN SCH (14:24)
[2017-06-30] MEDS ORDERED: AMINO ACID 10% IV SCH (17:00)
[2017-06-30] MEDS ORDERED: [UNRECOGNIZED DRUG - OTHER] IV SCH (17:00)
[2017-06-30] MEDS ORDERED: FAT EMULSIONS IV SCH (17:00)
[2017-06-30] MEDS ORDERED: DEXTROSE 70% IV SCH (17:00)
[2017-06-30] MEDS: FILTER, DISP 1.2 MICRON FOR TPN/PVN IV PRN (17:16)
[2017-06-30] MEDS ORDERED: WARFARIN 5 MG TABLET PO-COUM ONE (18:00)
[2017-06-30 19:53] VITALS: BP 118/75
[2017-06-30] MEDS: RISPERIDONE 2 MG TABLET PO SCH (21:14)
[2017-07-01 07:30] VITALS: BP 151/90
[2017-07-01] MEDS: LORazepam 2 MG/ML, 1ML IVPush SCH ×3 (08:00→17:00)
[2017-07-01 08:19] LABS: BLOOD UREA NITROGEN 16 mg/dL (7-18)
[2017-07-01] MEDS: MEGESTROL ORAL.SUSP 40 MG/ML PO SCH (09:00)
[2017-07-01] MEDS: CHOLECALCIFEROL 1,000 UNIT TABLET PO SCH (09:16)
[2017-07-01] MEDS: LORazepam 1MG TABLET PO SCH ×3 (09:16→17:07)
[2017-07-01 13:36] VITALS: BP 123/85
[2017-07-01] MEDS: INSULIN REGULAR LOW DOSE QDAY SQ-INSULIN SCH (14:30)
[2017-07-01] MEDS: CEFTRIAXONE PMX 1GM/50ML 50 ML IV SCH (14:34)
[2017-07-01] MEDS ORDERED: FAT EMULSIONS IV SCH (17:00)
[2017-07-01] MEDS ORDERED: AMINO ACID 10% IV SCH (17:00)
[2017-07-01] MEDS ORDERED: FILTER, DISP 1.2 MICRON FOR TPN/PVN IV PRN (17:00)
[2017-07-01] MEDS ORDERED: [UNRECOGNIZED DRUG - OTHER] IV SCH (17:00)
[2017-07-01] MEDS ORDERED: DEXTROSE 70% IV SCH (17:00)
[2017-07-01] MEDS ORDERED: WARFARIN 3 MG TABLET PO-COUM ONE (18:00)
[2017-07-01] MEDS ORDERED: WARFARIN 7.5 MG TABLET PO-COUM ONE (18:00)
[2017-07-01] MEDS: RISPERIDONE 2 MG TABLET PO SCH (19:40)
[2017-07-01 20:00] VITALS: BP 112/75
[2017-07-02 01:15] VITALS: BP 125/78
[2017-07-02 05:36] LABS: WHITE BLOOD COUNT 12.2 x10^3/uL (3.4-10)
[2017-07-02 07:30] VITALS: BP 126/80
[2017-07-02] MEDS: LORazepam 2 MG/ML, 1ML IVPush SCH ×3 (08:00→16:54)
[2017-07-02] MEDS: CHOLECALCIFEROL 1,000 UNIT TABLET PO SCH (10:07)
[2017-07-02] MEDS: MEGESTROL ORAL.SUSP 40 MG/ML PO SCH (10:07)
[2017-07-02] MEDS: LORazepam 1MG TABLET PO SCH ×3 (10:08→19:46)
[2017-07-02 13:50] VITALS: BP 110/79
[2017-07-02] MEDS: INSULIN REGULAR LOW DOSE QDAY SQ-INSULIN SCH (14:30)
[2017-07-02] MEDS: CEFTRIAXONE PMX 1GM/50ML 50 ML IV SCH (15:24)
[2017-07-02] MEDS ORDERED: FILTER, DISP 1.2 MICRON FOR TPN/PVN IV PRN (17:00)
[2017-07-02] MEDS ORDERED: DEXTROSE 70% IV SCH (17:00)
[2017-07-02] MEDS ORDERED: AMINO ACID 10% IV SCH (17:00)
[2017-07-02] MEDS ORDERED: [UNRECOGNIZED DRUG - OTHER] IV SCH (17:00)
[2017-07-02] MEDS ORDERED: FAT EMULSIONS IV SCH (17:00)
[2017-07-02] MEDS ORDERED: WARFARIN 10 MG TABLET PO-COUM ONE (18:00)
[2017-07-02 18:36] VITALS: BP 126/77
[2017-07-02] MEDS: RISPERIDONE 2 MG TABLET PO SCH (19:46)
[2017-07-03 03:02] VITALS: BP 139/79
[2017-07-03 05:46] LABS: BLOOD UREA NITROGEN 15 mg/dL (7-18)
[2017-07-03 05:47] LABS: HEMATOCRIT 40.6 % (34.6-47.8); HEMOGLOBIN 13.2 g/dL (11.7-16.4); WHITE BLOOD COUNT 19.5 x10^3/uL (3.4-10)
[2017-07-03 07:45] VITALS: BP 138/88
[2017-07-03] MEDS: LORazepam 2 MG/ML, 1ML IVPush SCH ×3 (07:58→17:00)
[2017-07-03] MEDS: LORazepam 1MG TABLET PO SCH ×3 (07:59→18:30)
[2017-07-03] MEDS: CHOLECALCIFEROL 1,000 UNIT TABLET PO SCH (08:00)
[2017-07-03] MEDS: MEGESTROL ORAL.SUSP 40 MG/ML PO SCH (08:00)
[2017-07-03 13:40] VITALS: BP 113/75
[2017-07-03] MEDS: INSULIN REGULAR LOW DOSE QDAY SQ-INSULIN SCH (14:30)
[2017-07-03] MEDS ORDERED: [UNRECOGNIZED DRUG - OTHER] IV SCH ×2 (17:00)
[2017-07-03] MEDS ORDERED: DEXTROSE 70% IV SCH ×2 (17:00)
[2017-07-03] MEDS ORDERED: FILTER, DISP 1.2 MICRON FOR TPN/PVN IV PRN (17:00)
[2017-07-03] MEDS ORDERED: FAT EMULSIONS IV SCH ×2 (17:00)
[2017-07-03] MEDS ORDERED: TPN RATE CHANGE MC ONE (17:00)
[2017-07-03] MEDS ORDERED: AMINO ACID 10% IV SCH ×2 (17:00)
[2017-07-03] MEDS ORDERED: WARFARIN 7.5 MG TABLET PO-COUM ONE (18:00)
[2017-07-03 19:11] VITALS: BP 102/68
[2017-07-03] MEDS: RISPERIDONE 2 MG TABLET PO SCH (20:19)
[2017-07-04 00:18] VITALS: BP 103/67
[2017-07-04] MEDS: LORazepam 2 MG/ML, 1ML IVPush SCH ×3 (08:00→17:00)
[2017-07-04 08:30] VITALS: BP 136/98
[2017-07-04] MEDS: LORazepam 1MG TABLET PO SCH ×3 (10:08→18:06)
[2017-07-04] MEDS: MEGESTROL ORAL.SUSP 40 MG/ML PO SCH (10:09)
[2017-07-04] MEDS: CHOLECALCIFEROL 1,000 UNIT TABLET PO SCH (10:09)
[2017-07-04] MEDS: metroNIDAZOLE 500 MG TABLET PO SCH ×2 (10:09→18:05)
[2017-07-04] MEDS: INSULIN REGULAR LOW DOSE QDAY SQ-INSULIN SCH (13:35)
[2017-07-04 14:30] VITALS: BP 124/82
[2017-07-04] MEDS ORDERED: AMINO ACID 10% IV SCH (17:00)
[2017-07-04] MEDS ORDERED: [UNRECOGNIZED DRUG - OTHER] IV SCH (17:00)
[2017-07-04] MEDS ORDERED: DEXTROSE 70% IV SCH (17:00)
[2017-07-04] MEDS ORDERED: FAT EMULSIONS IV SCH (17:00)
[2017-07-04] MEDS ORDERED: WARFARIN 5 MG TABLET PO-COUM ONE (18:00)
[2017-07-04 19:31] VITALS: BP 124/85
[2017-07-04] MEDS: RISPERIDONE 2 MG TABLET PO SCH (21:12)
[2017-07-05] MEDS: metroNIDAZOLE 500 MG TABLET PO SCH ×3 (02:01→17:29)
[2017-07-05 02:10] VITALS: BP 134/81
[2017-07-05 07:40] VITALS: BP 138/91
[2017-07-05] MEDS: LORazepam 2 MG/ML, 1ML IVPush SCH ×3 (08:00→17:00)
[2017-07-05] MEDS: MEGESTROL ORAL.SUSP 40 MG/ML PO SCH (08:15)
[2017-07-05] MEDS: LORazepam 1MG TABLET PO SCH ×3 (08:17→17:29)
[2017-07-05] MEDS: CHOLECALCIFEROL 1,000 UNIT TABLET PO SCH (08:17)
[2017-07-05 14:00] VITALS: BP 112/76
[2017-07-05] MEDS ORDERED: ACETAMINOPHEN 325 MG TABLET PO PRN (14:30)
[2017-07-05] MEDS ORDERED: ONDANSETRON 2MG/ML, 2ML IVPush PRN (14:30)
[2017-07-05] MEDS ORDERED: WARFARIN 7.5 MG TABLET PO-COUM ONE (18:00)
[2017-07-05 19:40] VITALS: BP 115/72
[2017-07-05] MEDS: RISPERIDONE 2 MG TABLET PO SCH (20:21)
[2017-07-06 01:26] VITALS: BP 107/66
[2017-07-06] MEDS: metroNIDAZOLE 500 MG TABLET PO SCH ×3 (01:43→17:57)
[2017-07-06 07:36] VITALS: BP 137/92
[2017-07-06] MEDS: LORazepam 2 MG/ML, 1ML IVPush SCH ×3 (08:00→17:00)
[2017-07-06] MEDS: CHOLECALCIFEROL 1,000 UNIT TABLET PO SCH (08:09)
[2017-07-06] MEDS: MEGESTROL ORAL.SUSP 40 MG/ML PO SCH (08:09)
[2017-07-06] MEDS: LORazepam 1MG TABLET PO SCH ×3 (08:09→17:57)
[2017-07-06 10:57] LABS: BLOOD UREA NITROGEN 16 mg/dL (7-18); HEMATOCRIT 46.3 % (34.6-47.8); HEMOGLOBIN 15.1 g/dL (11.7-16.4); WHITE BLOOD COUNT 11.2 x10^3/uL (3.4-10)
[2017-07-06 12:53] VITALS: BP 116/79
[2017-07-06] MEDS ORDERED: WARFARIN 3 MG TABLET PO-COUM SCH (18:00)
[2017-07-06 19:22] VITALS: BP 120/84
[2017-07-06] MEDS: RISPERIDONE 2 MG TABLET PO SCH (19:46)
[2017-07-07 01:22] VITALS: BP 111/72
[2017-07-07] MEDS: metroNIDAZOLE 500 MG TABLET PO SCH ×3 (02:07→18:23)
[2017-07-07 07:45] VITALS: BP 122/80
[2017-07-07] MEDS: LORazepam 2 MG/ML, 1ML IVPush SCH ×3 (08:00→17:00)
[2017-07-07] MEDS ORDERED: HOLD COUMADIN MC PRN (08:30)
[2017-07-07] MEDS: LORazepam 1MG TABLET PO SCH ×3 (09:01→17:18)
[2017-07-07] MEDS: MEGESTROL ORAL.SUSP 40 MG/ML PO SCH (09:01)
[2017-07-07] MEDS: CHOLECALCIFEROL 1,000 UNIT TABLET PO SCH (09:02)
[2017-07-07 10:49] LABS: ASPARTATE AMINO TRANSFERASE 14 U/L (15-37); BLOOD UREA NITROGEN 20 mg/dL (7-18)
[2017-07-07] MEDS ORDERED: LORazepam 0.5MG TABLET ONE (12:07)
[2017-07-07 13:26] VITALS: BP 107/77
[2017-07-07 19:17] VITALS: BP 120/81
[2017-07-07] MEDS: RISPERIDONE 2 MG TABLET PO SCH (20:18)
[2017-07-08 01:20] VITALS: BP 106/73
[2017-07-08] MEDS: metroNIDAZOLE 500 MG TABLET PO SCH ×3 (02:32→17:29)
[2017-07-08 07:14] VITALS: BP 117/77
[2017-07-08] MEDS: LORazepam 2 MG/ML, 1ML IVPush SCH ×3 (08:00→17:00)
[2017-07-08] MEDS ORDERED: HOLD COUMADIN MC PRN (08:00)
[2017-07-08] MEDS ORDERED: PHYTONADIONE 5 MG TABLET PO ONE (08:30)
[2017-07-08] MEDS: CHOLECALCIFEROL 1,000 UNIT TABLET PO SCH (08:35)
[2017-07-08] MEDS: LORazepam 1MG TABLET PO SCH ×3 (08:35→17:29)
[2017-07-08] MEDS: MEGESTROL ORAL.SUSP 40 MG/ML PO SCH (08:35)
[2017-07-08 11:39] LABS: HEMATOCRIT 44.5 % (34.6-47.8); HEMOGLOBIN 14.5 g/dL (11.7-16.4); WHITE BLOOD COUNT 10.4 x10^3/uL (3.4-10)
[2017-07-08 11:50] LABS: BLOOD UREA NITROGEN 21 mg/dL (7-18)
[2017-07-08 11:53] LABS: ASPARTATE AMINO TRANSFERASE 11 U/L (15-37)
[2017-07-08 12:27] VITALS: BP 116/77
[2017-07-08 20:34] VITALS: BP 119/83
[2017-07-08] MEDS: RISPERIDONE 2 MG TABLET PO SCH (21:08)
[2017-07-09 02:08] VITALS: BP 120/80
[2017-07-09] MEDS: metroNIDAZOLE 500 MG TABLET PO SCH ×3 (02:17→17:59)
[2017-07-09 07:00] VITALS: BP 117/76
[2017-07-09] MEDS: LORazepam 2 MG/ML, 1ML IVPush SCH ×3 (08:00→17:00)
[2017-07-09] MEDS: LORazepam 1MG TABLET PO SCH ×4 (08:29→22:38)
[2017-07-09] MEDS: CHOLECALCIFEROL 1,000 UNIT TABLET PO SCH (08:29)
[2017-07-09] MEDS: MEGESTROL ORAL.SUSP 40 MG/ML PO SCH (08:29)
[2017-07-09 13:59] VITALS: BP 118/89
[2017-07-09] MEDS ORDERED: WARFARIN 5 MG TABLET PO-COUM SCH (18:00)
[2017-07-09 19:12] VITALS: BP 126/82
[2017-07-09] MEDS ORDERED: LORazepam 1MG TABLET PO PRN (19:30)
[2017-07-09] MEDS: RISPERIDONE 2 MG TABLET PO SCH (20:01)
[2017-07-10 03:15] VITALS: BP 107/71
[2017-07-10] MEDS: metroNIDAZOLE 500 MG TABLET PO SCH ×3 (04:20→17:49)
[2017-07-10 06:50] VITALS: BP 127/81
[2017-07-10] MEDS: LORazepam 2 MG/ML, 1ML IVPush SCH ×3 (08:00→17:00)
[2017-07-10] MEDS: MEGESTROL ORAL.SUSP 40 MG/ML PO SCH (08:29)
[2017-07-10] MEDS: CHOLECALCIFEROL 1,000 UNIT TABLET PO SCH (08:30)
[2017-07-10] MEDS: LORazepam 1MG TABLET PO SCH ×4 (08:30→21:34)
[2017-07-10 14:05] VITALS: BP 127/85
[2017-07-10] MEDS ORDERED: WARFARIN 7.5 MG TABLET PO-COUM SCH (18:00)
[2017-07-10 20:31] VITALS: BP 125/84
[2017-07-10] MEDS: RISPERIDONE 2 MG TABLET PO SCH (21:33)
[2017-07-11 02:06] VITALS: BP 104/70
[2017-07-11] MEDS: metroNIDAZOLE 500 MG TABLET PO SCH ×3 (02:38→17:50)
[2017-07-11] MEDS: LORazepam 2 MG/ML, 1ML IVPush SCH ×3 (08:00→17:00)
[2017-07-11 08:15] VITALS: BP 146/93
[2017-07-11] MEDS: MEGESTROL ORAL.SUSP 40 MG/ML PO SCH (09:35)
[2017-07-11] MEDS: LORazepam 1MG TABLET PO SCH ×4 (09:35→21:14)
[2017-07-11] MEDS: CHOLECALCIFEROL 1,000 UNIT TABLET PO SCH (09:37)
[2017-07-11] MEDS ORDERED: DOCUSATE 100 MG CAPSULE PO PRN (13:00)
[2017-07-11 13:19] VITALS: BP 130/93
[2017-07-11] MEDS ORDERED: WARFARIN 5 MG TABLET PO-COUM ONE (18:00)
[2017-07-11 21:11] VITALS: BP 125/82
[2017-07-11] MEDS: RISPERIDONE 2 MG TABLET PO SCH (21:14)
[2017-07-12] MEDS: metroNIDAZOLE 500 MG TABLET PO SCH ×3 (02:58→17:30)
[2017-07-12 02:59] VITALS: BP 132/88
[2017-07-12 06:03] LABS: HEMATOCRIT 39.5 % (34.6-47.8); HEMOGLOBIN 13.1 g/dL (11.7-16.4); WHITE BLOOD COUNT 8.6 x10^3/uL (3.4-10)
[2017-07-12 06:14] VITALS: BP 125/65
[2017-07-12] MEDS: LORazepam 2 MG/ML, 1ML IVPush SCH ×3 (07:33→17:00)
[2017-07-12] MEDS: LORazepam 1MG TABLET PO SCH ×4 (07:43→20:39)
[2017-07-12] MEDS: CHOLECALCIFEROL 1,000 UNIT TABLET PO SCH (10:15)
[2017-07-12] MEDS: MEGESTROL ORAL.SUSP 40 MG/ML PO SCH (10:15)
[2017-07-12 17:01] VITALS: BP 123/84
[2017-07-12] MEDS ORDERED: WARFARIN 2.5 MG TABLET PO-COUM ONE (18:00)
[2017-07-12 20:08] VITALS: BP 111/73
[2017-07-12] MEDS: RISPERIDONE 2 MG TABLET PO SCH (20:39)
[2017-07-13] MEDS: metroNIDAZOLE 500 MG TABLET PO SCH ×3 (01:57→17:32)
[2017-07-13 02:33] VITALS: BP 120/87
[2017-07-13 05:37] LABS: BLOOD UREA NITROGEN 9 mg/dL (7-18)
[2017-07-13 07:53] VITALS: BP 132/93
[2017-07-13] MEDS: LORazepam 2 MG/ML, 1ML IVPush SCH ×3 (08:00→17:00)
[2017-07-13] MEDS: MEGESTROL ORAL.SUSP 40 MG/ML PO SCH (08:58)
[2017-07-13] MEDS: CHOLECALCIFEROL 1,000 UNIT TABLET PO SCH (08:59)
[2017-07-13] MEDS: LORazepam 1MG TABLET PO SCH ×4 (08:59→20:36)
[2017-07-13] MEDS ORDERED: POTASSIUM CHLORIDE 40 MEQ in SODIUM CHLORIDE 0.9% 500 ML IV ONE (09:30)
[2017-07-13 14:32] VITALS: BP 110/76
[2017-07-13] MEDS: POTASSIUM CHLORIDE 20 MEQ PACKET PO SCH (17:32)
[2017-07-13] MEDS ORDERED: WARFARIN 2.5 MG TABLET PO-COUM ONE (18:00)
[2017-07-13 19:52] VITALS: BP 120/83
[2017-07-13] MEDS: RISPERIDONE 2 MG TABLET PO SCH (20:36)
[2017-07-14] MEDS: metroNIDAZOLE 500 MG TABLET PO SCH ×3 (02:22→18:12)
[2017-07-14 02:32] VITALS: BP 122/83
[2017-07-14 05:39] LABS: BLOOD UREA NITROGEN 10 mg/dL (7-18)
[2017-07-14 07:06] VITALS: BP 140/85
[2017-07-14] MEDS ORDERED: POTASSIUM CHLORIDE 20 MEQ TAB.ER.PRT PO SCH (08:00)
[2017-07-14] MEDS ORDERED: POTASSIUM CHLORIDE 40 MEQ in SODIUM CHLORIDE 0.9% 500 ML IV ONE (09:00)
[2017-07-14] MEDS: CHOLECALCIFEROL 1,000 UNIT TABLET PO SCH (09:38)
[2017-07-14] MEDS: MULTIVITAMIN 1 TABLET PO SCH (09:38)
[2017-07-14] MEDS: LORazepam 1MG TABLET PO SCH ×4 (09:40→22:17)
[2017-07-14] MEDS: POTASSIUM CHLORIDE 20 MEQ PACKET PO SCH (09:40)
[2017-07-14] MEDS: MEGESTROL ORAL.SUSP 40 MG/ML PO SCH (09:48)
[2017-07-14 13:30] VITALS: BP 132/99
[2017-07-14] MEDS ORDERED: WARFARIN 3 MG TABLET PO-COUM ONE (18:00)
[2017-07-14 20:18] VITALS: BP 128/91
[2017-07-14] MEDS: RISPERIDONE 2 MG TABLET PO SCH (22:17)
[2017-07-15 01:21] VITALS: BP 118/70
[2017-07-15] MEDS: metroNIDAZOLE 500 MG TABLET PO SCH ×3 (03:04→17:46)
[2017-07-15] MEDS: LORazepam 1MG TABLET PO SCH ×4 (07:42→21:16)
[2017-07-15] MEDS: POTASSIUM CHLORIDE 20 MEQ PACKET PO SCH (07:42)
[2017-07-15 07:45] VITALS: BP 151/89
[2017-07-15] MEDS: MEGESTROL ORAL.SUSP 40 MG/ML PO SCH (09:36)
[2017-07-15] MEDS: MULTIVITAMIN 1 TABLET PO SCH (09:38)
[2017-07-15] MEDS: CHOLECALCIFEROL 1,000 UNIT TABLET PO SCH (09:38)
[2017-07-15 13:13] VITALS: BP 129/72
[2017-07-15 13:24] VITALS: BP 145/85
[2017-07-15] MEDS ORDERED: WARFARIN 5 MG TABLET PO-COUM ONE (18:00)
[2017-07-15 19:45] VITALS: BP 114/78
[2017-07-15] MEDS: RISPERIDONE 2 MG TABLET PO SCH (21:17)
[2017-07-16] MEDS: metroNIDAZOLE 500 MG TABLET PO SCH ×3 (02:10→17:51)
[2017-07-16 02:23] VITALS: BP 111/72
[2017-07-16 07:51] VITALS: BP 132/80
[2017-07-16] MEDS: POTASSIUM CHLORIDE 20 MEQ PACKET PO SCH (07:58)
[2017-07-16] MEDS: MULTIVITAMIN 1 TABLET PO SCH (07:58)
[2017-07-16] MEDS: LORazepam 1MG TABLET PO SCH ×4 (07:59→20:32)
[2017-07-16] MEDS: CHOLECALCIFEROL 1,000 UNIT TABLET PO SCH (08:09)
[2017-07-16] MEDS: MEGESTROL ORAL.SUSP 40 MG/ML PO SCH (10:31)
[2017-07-16 13:05] VITALS: BP 114/76
[2017-07-16] MEDS ORDERED: WARFARIN 5 MG TABLET PO-COUM ONE (18:00)
[2017-07-16 20:04] VITALS: BP 134/89
[2017-07-16] MEDS: RISPERIDONE 2 MG TABLET PO SCH (20:32)
[2017-07-17 02:14] VITALS: BP 133/89
[2017-07-17] MEDS: metroNIDAZOLE 500 MG TABLET PO SCH ×3 (02:26→18:29)
[2017-07-17 07:19] VITALS: BP 145/90
[2017-07-17] MEDS: MULTIVITAMIN 1 TABLET PO SCH (10:04)
[2017-07-17] MEDS: POTASSIUM CHLORIDE 20 MEQ PACKET PO SCH (10:05)
[2017-07-17] MEDS: MEGESTROL ORAL.SUSP 40 MG/ML PO SCH (10:06)
[2017-07-17] MEDS: LORazepam 1MG TABLET PO SCH ×4 (10:06→22:39)
[2017-07-17] MEDS: CHOLECALCIFEROL 1,000 UNIT TABLET PO SCH (10:18)
[2017-07-17 15:14] VITALS: BP 149/87
[2017-07-17] MEDS ORDERED: WARFARIN 2 MG TABLET PO-COUM ONE (18:00)
[2017-07-17 19:17] VITALS: BP 108/76
[2017-07-17] MEDS ORDERED: RISPERIDONE 2 MG TABLET PO SCH (21:00)
[2017-07-18 01:20] VITALS: BP 119/84
[2017-07-18] MEDS: metroNIDAZOLE 500 MG TABLET PO SCH ×2 (02:10→10:40)
[2017-07-18 06:13] LABS: BLOOD UREA NITROGEN 9 mg/dL (7-18)
[2017-07-18 06:16] LABS: ASPARTATE AMINO TRANSFERASE 14 U/L (15-37)
[2017-07-18 07:15] VITALS: BP 133/84
[2017-07-18] MEDS: CHOLECALCIFEROL 1,000 UNIT TABLET PO SCH (10:40)
[2017-07-18] MEDS: LORazepam 1MG TABLET PO SCH ×2 (10:40→13:46)
[2017-07-18] MEDS: POTASSIUM CHLORIDE 20 MEQ PACKET PO SCH (10:40)
[2017-07-18] MEDS: MULTIVITAMIN 1 TABLET PO SCH (10:40)
[2017-07-18] MEDS: MEGESTROL ORAL.SUSP 40 MG/ML PO SCH (10:49)
[2017-07-18 12:57] VITALS: BP 120/81
[2017-07-18] MEDS ORDERED: WARF2TAB PO-COUM (13:57)
[2017-07-18] MEDS ORDERED: POTA20PA25 PO (13:57)
[2017-07-18] MEDS ORDERED: MEGE400O2 PO (13:57)
[2017-07-18] MEDS ORDERED: RISP2TAB35 PO (13:57)
[2017-07-18] MEDS ORDERED: CHOL10003 PO (13:57)
[2017-07-18] MEDS ORDERED: MULT1TAB60 PO (13:57)
[2017-07-18] MEDS ORDERED: DOCU-131 PO (13:57)
[2017-07-18] MEDS ORDERED: TRAZ50TA18 PO (13:57)
[2017-07-18] MEDS ORDERED: ACET325T14 PO (13:57)
[2017-07-18] MEDS ORDERED: LORA-446 PO ×2 (13:57)
[2017-07-18] MEDS ORDERED: WARFARIN 2 MG TABLET PO-COUM SCH (18:00)
== END 2017-07-18 15:20 | DRG 884 ==
LOC: SUATTDRO 17:45 → ED 18:10 → EDIP 18:47 → 4NOR 19:35 → 3NE 06-04 22:15
PROVIDERS: ADMIT Internal Medicine; ATTEND Internal Medicine
PROC: 0T9B70Z Drainage of Bladder with Drainage Device, Via Natural or Artificial Opening (ICD-10-PCS; 2017-06-01)
PROC: 02HV33Z Insertion of Infusion Device into Superior Vena Cava, Percutaneous Approach (ICD-10-PCS; principal; 2017-06-10)
PROC: B5181ZA Fluoroscopy of Superior Vena Cava using Low Osmolar Contrast, Guidance (ICD-10-PCS; 2017-06-10)
PROC: B548ZZA Ultrasonography of Superior Vena Cava, Guidance (ICD-10-PCS; 2017-06-10)
DX: F06.1 Catatonic disorder due to known physiological condition (principal); E43 Unspecified severe protein-calorie malnutrition; A04.7 Enterocolitis due to Clostridium difficile; N39.0 Urinary tract infection, site not specified; E83.39 Other disorders of phosphorus metabolism; E87.6 Hypokalemia; E55.9 Vitamin D deficiency, unspecified; E83.42 Hypomagnesemia; E87.70 Fluid overload, unspecified; F50.9 Eating disorder, unspecified; F22 Delusional disorders; R26.2 Difficulty in walking, not elsewhere classified; Z91.14 Patient's other noncompliance with medication regimen; I10 Essential (primary) hypertension; F41.9 Anxiety disorder, unspecified; K22.4 Dyskinesia of esophagus; B95.1 Streptococcus, group B, as the cause of diseases classified elsewhere; F32.9 Major depressive disorder, single episode, unspecified; D72.829 Elevated white blood cell count, unspecified; Z79.01 Long term (current) use of anticoagulants; Z86.711 Personal history of pulmonary embolism; Z68.25 Body mass index [BMI] 25.0-25.9, adult; Z88.2 Allergy status to sulfonamides; Z88.8 Allergy status to other drugs, medicaments and biological substances; Z79.899 Other long term (current) drug therapy; Z86.718 Personal history of other venous thrombosis and embolism; Z87.440 Personal history of urinary (tract) infections
CPT/HCPCS: 36415; 36569; 71020; 71275; 76937; 77001; 80048; 80053; 80307; 80329; 81001; 81003; 82040; 82140; 82306; 82550; 82962; 83735; 84100; 84134; 84439; 84443; 84478; 85025; 85610; 87086; 87147; 87324; 93005; 96372; J0610; J0696; J1650; J1815; J3411; J3475; J3480; Q9967; C1751; G0479; G0480; J2060; J3420; J7030; J7040; S0028

== ENCOUNTER 2019-04-02 09:48 | Emergency (ER) | payer OTHER, MEDICARE ==
[~2019-04-02] VITALS: Ht 157.5 cm; Wt 46.8 kg
[~2019-04-02 09:48] MED LIST changes: +ACET325T14 PO; +ACID1GRA3 GT; +BROM2.5T3 GT; +CHOL10003 GT; +CHOL10003 PO; +CIPR2.5D OP; +DOCU-131 PO; +LORA-445 PO; +MEGE400O2 GT; +MEGE400O2 PO; +MIDA1PLA IV; +MULT1TAB60 PO; +Multivit.w/Iron, Minerals GT; +ONDA4TAB7 PO; +POTA20PA25 PO; +RISP-2 PO; -RISP1TAB PO; +RISP2TAB3 PO; +RISP2TAB35 PO; +TRAZ50TA66 PO; +WARF-36 PO; +WARF5TAB PO; +[UNRECOGNIZED DRUG - CODE] GT; +[UNRECOGNIZED DRUG - OTHER] IV
--- NOTE | 2019-04-02 10:06 | NUR ---
BIB EMS FROM HOME FOR + SYNCOPE
[2019-04-02] MEDS ORDERED: LORA-446 PO (10:19)
[2019-04-02 10:45] LABS: BASOPHILS # (AUTO) 0.01 x10^3/uL (0-0.1); BASOPHILS % (AUTO) 0 % (0-1); EOSINOPHILS # (AUTO) 0.02 x10^3/uL (0-0.4); EOSINOPHILS % (AUTO) 0 % (1-7); LYMPHOCYTES % (AUTO) 4 % (22-44); MD NO; MEAN CORPUSCULAR HEMOGLOBIN 28.5 pg (27.0-34.8); MEAN CORPUSCULAR HGB CONC 31.5 g/dL (32.4-35.8); MEAN CORPUSCULAR VOLUME 90.4 fL (80-100); MEAN PLATELET VOLUME 8.7 fL (7.4-10.4); MONOCYTES # (AUTO) 0.71 x10^3/uL (0.2-0.8); MONOCYTES % (AUTO) 5 % (2-9); NEUTROPHILS # (AUTO) 12.21 x10^3/uL (1.8-6.8); NEUTROPHILS % (AUTO) 90 % (42-75); PLATELET COUNT 200 x10^3/uL (130-400); RED BLOOD COUNT 4.97 x10^6/uL (3.82-5.3); RED CELL DISTRIBUTION WIDTH 13.6 % (9.6-15.2)
[2019-04-02 10:53] LABS: ALBUMIN 3.2 g/dL (3.4-5.0); ANION GAP 6 mmol/L (5-15); CHLORIDE 109 mmol/L (98-107); CREATININE 0.75 mg/dL (0.55-1.02)
[2019-04-02 10:57] LABS: TROPONIN I < 0.015 ng/mL (0.000-0.045)
[2019-04-02] MEDS ORDERED: FLUORESCEIN OPHTHALMIC 1 MG STRIP ONE (11:43)
[2019-04-02 11:53] LABS: MICROSCOPIC AUTO
[2019-04-02 11:57] LABS: CULTURE INDICATED? YES
[2019-04-02] MEDS ORDERED: CEFDINIR 300 MG CAPSULE ONE (12:06)
[2019-04-02 12:11] VITALS: BP 118/76
--- NOTE | 2019-04-02 12:12 | NUR ---
PT MED NOTED FOR UTI. PLAN FOR D/C HOME WITH ANTIBIOTICS DISCUSSED AND QUESTIONS ANSWERED.
[2019-04-02] MEDS ORDERED: CEFDINIR 300 MG CAPSULE PO ONE (12:30)
== END 2019-04-02 12:52 | disposition home or self-care (01) ==
LOC: ED 11:29
DX: R55 Syncope and collapse (principal); N39.0 Urinary tract infection, site not specified
CPT/HCPCS: 36415; 80048; 81001; 82040; 83735; 84484; 85025; 87086; 87147; 93005; 99284